=== PATIENT | male | born 1940 | race Caucasian/White ===

== ENCOUNTER 2020-09-25 16:48 | Emergency (ER) | payer OTHER, MEDICARE, SELFPAY ==
[2020-09-25] VITALS (21 sets, daily range): BP systolic 117–176; BP diastolic 61–92; PULSE 60–71; RESP 11–35; TEMP 36.5; O2SAT 91–100; BMI 29.0
--- NOTE | 2020-09-25 17:09 | DI.CT.S_ITS ---
PROCEDURE: CT HEAD/BRAIN WO CON INDICATIONS: multiple falls,ran into wall hitting head when he passed out TECHNIQUE: Noncontrast 4.5 mm thick angled axial sections acquired from the foramen magnum to the vertex, with coronal and sagittal reformats. For radiation dose reduction, the following was used: automated exposure control, adjustment of mA and/or kV according to patient size. COMPARISON: None. FINDINGS: Image quality: Inferior-most occipital bone, foramen magnum and clivus not included on the exam. CSF spaces: Basal cisterns are patent. No extra-axial fluid collections. The ventricles are symmetric in size and shape. Brain: No intracranial bleeds or masses. There is cerebral volume loss for age, with resultant ventricular and sulcal prominence. There are moderate periventricular and deep white matter chronic small vessel ischemic changes. There is intracranial internal carotid artery atherosclerosis. Old lacunar infarct noted in the posterior aspect of the left lentiform nucleus and several additional smaller lacunar infarcts noted in both basal ganglia Skull and face: Calvarium and visualized facial bones appear intact, without suspicious lesions. Bilateral intraocular lens replacements noted. Sinuses: Visualized sinuses and mastoids are clear. IMPRESSION: Atrophy and chronic ischemic change without acute hemorrhage or mass effect. Dictated by: Rene Medley M.D. on 09/25/2020 at 17:15 Approved by: Rene Medley M.D. on 09/25/2020 at 17:19
--- NOTE | 2020-09-25 17:10 | DI.CT.S_ITS ---
PROCEDURE: CT CERVICAL SPINE WO CON INDICATIONS: fall,neck pain TECHNIQUE: Noncontrast 3 mm thick sections acquired from the skull base to the T4 level. Sagittal and coronal reformats were then constructed. For radiation dose reduction, the following was used: automated exposure control, adjustment of mA and/or kV according to patient size. COMPARISON: None. FINDINGS: Image quality: Excellent. Bones: No fractures or dislocations. Visualized superior ribs are intact. Disc space narrowing and small posterior osteophytes noted at C5-6 and C6-7. There is degenerative ankylosis at C3-4 including the left facet and bilateral uncovertebral joints. Left foraminal stenosis present at C3-4, C4-5 and C5-6. Craniovertebral age bone mineralization within normal limits. Soft tissues: Prevertebral soft tissues are normal in thickness. No paravertebral hematomas. No apical pneumothoraces. Left-sided pacer wires noted. IMPRESSION: Degenerative changes without fracture or malalignment. Dictated by: Rene Medley M.D. on 09/25/2020 at 17:19 Approved by: Rene Medley M.D. on 09/25/2020 at 17:25
[2020-09-25 17:28] LABS: Add Manual Diff / Slide Review NO; Basophils Absolute Auto 100 /uL (0-100); Basophils Percent Auto 0.8 % (0-2); Eosinophils Absolute Auto 400 /uL (0-450); Eosinophils Percent Auto 4.3 % (2-4); Hematocrit 38.5 % (41-53); Hemoglobin 12.5 g/dL (13.5-17.5); Lymphocytes Absolute Auto 1300 /uL (1100-4500); Mean Corpuscular HGB Conc 32.6 % (30-36); Mean Corpuscular Hemoglobin 28.9 PG (26-34); Mean Corpuscular Volume 88.6 fL (80-100); Monocytes Absolute Auto 700 /uL (0-900); Monocytes Percent Auto 7.5 % (3-14); Neutrophils Absolute Auto 6700 /uL (1500-7000); Neutrophils Percent Auto 73.4 % (50-75); Platelet Count 207 X10^3/uL (150-400); Red Blood Cell Count 4.35 X10^6/uL (4.5-5.9); Red Cell Distribution Width 16.3 % (11.6-14.8); White Blood Cell Count 9.1 X10^3/uL (4.5-11.0)
[2020-09-25 17:34] LABS: INR 1.9 (0.9-1.3); Prothrombin Time 21.9 SECONDS (10.1-12.7)
[2020-09-25 17:37] LABS: PTT Partial Thromboplastin Tim 42 SECONDS (26.4-36.2)
--- NOTE | 2020-09-25 20:31 | ED.FALL ---
HPI - Fall General Chief Complaint: Fall Stated Complaint: multiple falls this week Time Seen by Provider: 09/25/20 18:45 Source: patient Mode of arrival: Wheelchair Related Data Allergies Allergy/AdvReac Type Severity Reaction Status Date / Time No Known Drug Allergies Allergy Verified 09/25/20 16:54 Patient History Social History Smoking Status: Unknown if ever smoked Smoking Status: Unknown if ever smoked alcohol intake frequency: holidays/special occasions only Substance Use Type: does not use Exam Initial Vital Signs Initial Vital Signs: Vital Signs Temperature 97.7 F 09/25/20 16:50 Pulse Rate 63 09/25/20 16:50 Respiratory Rate 14 09/25/20 16:50 Blood Pressure 129/66 09/25/20 16:50 Pulse Oximetry 95 09/25/20 16:50 Course Orders Ordered: ED Orders 09/25/20 17:09 CT head/brain wo con Stat EKG-12 Lead Stat 09/25/20 17:10 CT cervical spine wo con Stat 09/25/20 17:19 Complete Blood Count AUTO DIFF Stat Comprehensive Metabolic Panel Stat Partial Thromboplastin Time Stat Prothrombin Time INR Stat Type and Screen Stat 09/25/20 20:31 Urinalysis and Microscopic Stat Vital Signs Vital signs: Vital Signs - 8 hr 09/25/20 16:50 09/25/20 17:09 09/25/20 17:11 Temperature 97.7 F Pulse Rate 63 62 60 Respiratory Rate 14 12 12 Blood Pressure 129/66 157/67 H Pulse Oximetry 95 99 09/25/20 17:30 09/25/20 18:00 09/25/20 18:30 Temperature Pulse Rate 60 60 60 Respiratory Rate 17 18 16 Blood Pressure Pulse Oximetry 97 96 97 09/25/20 18:33 09/25/20 19:00 09/25/20 19:30 Temperature Pulse Rate 60 60 60 Respiratory Rate 16 13 12 Blood Pressure 135/63 117/64 Pulse Oximetry 97 97 97 09/25/20 19:31 09/25/20 20:00 Temperature Pulse Rate 61 61 Respiratory Rate 11 L 15 Blood Pressure 139/64 134/61 Pulse Oximetry 97 99 MDM - Fall Medical Records Attestation: I reviewed the patient's medical records. Lab Data Attestation: I reviewed the patient's lab results. Result diagrams: 09/25/20 17:19 09/25/20 17:19 Labs: Lab Results 09/25/20 09/25/20 09/25/20 Range/Units 17:19 17:19 17:19 WBC 9.1 (4.5-11.0) X10^3/uL RBC 4.35 L (4.5-5.9) X10^6/uL Hgb 12.5 L (13.5-17.5) g/dL Hct 38.5 L (41-53) % MCV 88.6 (80-100) fL MCH 28.9 (26-34) PG MCHC 32.6 (30-36) % RDW 16.3 H (11.6-14.8) % Plt Count 207 (150-400) X10^3/uL Neut % (Auto) 73.4 (50-75) % Lymph % (Auto) 14.0 L (25-40) % [place] % (Auto) 7.5 (3-14) % Eos % (Auto) 4.3 H (2-4) % Baso % (Auto) 0.8 (0-2) % Neut # (Auto) 6700 (8342-6208) /uL Lymph # (Auto) 1300 (8049-5892) /uL [place] # (Auto) 700 (0-900) /uL Eos # (Auto) 400 (0-450) /uL Baso # (Auto) 100 (0-100) /uL PT 21.9 H (10.1-12.7) SECONDS INR 1.9 H (0.9-1.3) APTT 42 H (26.4-36.2) SECONDS Sodium (137-145) mmol/L Potassium (3.4-5.1) mmol/L Chloride (98-107) mmol/L Carbon Dioxide (22-32) mmol/L BUN (9-20) mg/dL Creatinine (0.66-1.25) mg/dL Estimated GFR (>60) mL/min BUN/Creatinine Ratio (6-22) Glucose (80-110) mg/dL Calcium (8.4-10.2) mg/dL Total Bilirubin (0.2-1.3) mg/dL AST (17-59) IU/L ALT (<50) IU/L Alkaline Phosphatase (38-126) U/L Total Protein (6.3-8.2) g/dL Albumin (3.5-5.0) g/dL Globulin (1.7-4.1) g/dL Albumin/Globulin Ratio (1.0-2.8) Blood Type O Positive Antibody Screen Negative 09/25/20 Range/Units 17:19 WBC (4.5-11.0) X10^3/uL RBC (4.5-5.9) X10^6/uL Hgb (13.5-17.5) g/dL Hct (41-53) % MCV (80-100) fL MCH (26-34) PG MCHC (30-36) % RDW (11.6-14.8) % Plt Count (150-400) X10^3/uL Neut % (Auto) (50-75) % Lymph % (Auto) (25-40) % [place] % (Auto) (3-14) % Eos % (Auto) (2-4) % Baso % (Auto) (0-2) % Neut # (Auto) (0009-5633) /uL Lymph # (Auto) (8864-5614) /uL [place] # (Auto) (0-900) /uL Eos # (Auto) (0-450) /uL Baso # (Auto) (0-100) /uL PT (10.1-12.7) SECONDS INR (0.9-1.3) APTT (26.4-36.2) SECONDS Sodium 136 L (137-145) mmol/L Potassium 5.0 (3.4-5.1) mmol/L Chloride 101 (98-107) mmol/L Carbon Dioxide 24 (22-32) mmol/L BUN 77 H (9-20) mg/dL Creatinine 3.04 H (0.66-1.25) mg/dL Estimated GFR 20.1 L (>60) mL/min BUN/Creatinine Ratio 25.3 H (6-22) Glucose 125 H (80-110) mg/dL Calcium 9.3 (8.4-10.2) mg/dL Total Bilirubin 0.9 (0.2-1.3) mg/dL AST 31 (17-59) IU/L ALT 18 (<50) IU/L Alkaline Phosphatase 132 H (38-126) U/L Total Protein 8.0 (6.3-8.2) g/dL Albumin 4.1 (3.5-5.0) g/dL Globulin 3.9 (1.7-4.1) g/dL Albumin/Globulin Ratio 1.1 (1.0-2.8) Blood Type Antibody Screen Imaging Data Head CT: Radiologist's Impression: FINDINGS: Image quality: Inferior-most occipital bone, foramen magnum and clivus not included on the exam. CSF spaces: Basal cisterns are patent. No extra-axial fluid collections. The ventricles are symmetric in size and shape. Brain: No intracranial bleeds or masses. There is cerebral volume loss for age, with resultant ventricular and sulcal prominence. There are moderate periventricular and deep white matter chronic small vessel ischemic changes. There is intracranial internal carotid artery atherosclerosis. Old lacunar infarct noted in the posterior aspect of the left lentiform nucleus and several additional smaller lacunar infarcts noted in both basal ganglia Skull and face: Calvarium and visualized facial bones appear intact, without suspicious lesions. Bilateral intraocular lens replacements noted. Sinuses: Visualized sinuses and mastoids are clear. IMPRESSION: Atrophy and chronic ischemic change without acute hemorrhage or mass effect. Dictated by: Rene Medley M.D. on 09/25/2020 at 17:15 CT cervical spine: Radiologist's Impression: FINDINGS: Image quality: Excellent. Bones: No fractures or dislocations. Visualized superior ribs are intact. Disc space narrowing and small posterior osteophytes noted at C5-6 and C6-7. There is degenerative ankylosis at C3-4 including the left facet and bilateral uncovertebral joints. Left foraminal stenosis present at C3-4, C4-5 and C5-6. Craniovertebral age bone mineralization within normal limits. Soft tissues: Prevertebral soft tissues are normal in thickness. No paravertebral hematomas. No apical pneumothoraces. Left-sided pacer wires noted. IMPRESSION: Degenerative changes without fracture or malalignment. Dictated by: Rene Medley M.D. on 09/25/2020 at 17:19
[2020-09-25 20:58] LABS: Alanine Aminotransferase 18 IU/L (<50); Albumin 4.1 g/dL (3.5-5.0); Albumin Globulin Ratio 1.1 (1.0-2.8); Alkaline Phosphatase 132 U/L (38-126); Aspartate Aminotransferase 31 IU/L (17-59); BUN Creatinine Ratio 25.3 (6-22); Bilirubin Total 0.9 mg/dL (0.2-1.3); Blood Urea Nitrogen 77 mg/dL (9-20); Calcium 9.3 mg/dL (8.4-10.2); Carbon Dioxide 24 mmol/L (22-32); Chloride 101 mmol/L (98-107); Estimated Glomerular Filt Rate 20.1 mL/min (>60); Globulin 3.9 g/dL (1.7-4.1); Glucose 125 mg/dL (80-110); HEMOLYSIS < 15 (0-50); Sodium 136 mmol/L (137-145)
--- NOTE | 2020-09-25 21:46 | ED.GENADULT ---
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 He reportedly had 2 syncopal episodes 5 days ago and 2 4 days ago. States that he did hit his head and was having some neck pain immediately after the most recent fall. He was seen at his primary care doctor's office found to be hypotensive and transferred to the emergency room for further evaluation. He states that when he stands up he will get a pain in his neck and then feel dizzy and notes if he doesn't sit down he will fall down. He describes multiple recent hospital encounters and I have no access to those records. He does have a pacemaker in place. He reports that he had some kidney issues while he was on spironolactone that resolved once the spironolactone was discontinued. Related Data Home Medications Medication Instructions Recorded Confirmed allopurinol 09/26/20 apixaban [Eliquis] mg 09/26/20 atorvastatin 09/26/20 benzonatate mg PO 09/26/20 carvedilol 09/26/20 duloxetine mg PO 09/26/20 fluticasone propion-salmeterol INHALATION 09/26/20 [Advair Diskus] metoprolol succinate PO 09/26/20 pantoprazole PO 09/26/20 sacubitril-valsartan [Entresto] tab 09/26/20 tamsulosin mg PO 09/26/20 Allergies Allergy/AdvReac Type Severity Reaction Status Date / Time No Known Drug Allergies Allergy Verified 09/25/20 16:54 Review of Systems Review of Systems Narrative: Pertinent positive and negative findings as per HPI Remainder of review of systems is otherwise unremarkable for Constitutional: Fevers, chills, ENT: No sore throat, , ear pain CV: Chest pain, palpitations, Respiratory: Cough, wheeze, dyspnea GI: Nausea, vomiting, diarrhea, : Dysuria, hematuria, Patient History Medical History (Updated 09/26/20 @ 03:01 by Hamida Fonseca MD) Anticoagulant prescribed CAD (coronary artery disease) Hyperlipidemia Pacemaker Social History Smoking Status: Unknown if ever smoked Smoking Status: Unknown if ever smoked alcohol intake frequency: holidays/special occasions only Substance Use Type: does not use Exam Narrative Exam Narrative: General: Disheveled-appearing, in no acute distress. Well-nourished well-developed HEENT: Moist mucous membranes, normal sclera with reactive pupils, Neck: No JVD, supple Respiratory: Lungs are clear to auscultation, no wheezing no rales no rhonchi. Full and symmetrical air movement Cardiac: Regular rate and rhythm no murmurs no bruits Abdomen: Soft, nontender, good bowel tones, no flank pain Skin: Warm and dry, no rashes Neurologic: Grossly neurologically intact with no obvious asymmetries or abnormalities Extremities: No trauma, well perfused Psych: tangential but cooperative Initial Vital Signs Initial Vital Signs: Vital Signs Temperature 97.7 F 09/25/20 16:50 Pulse Rate 63 09/25/20 16:50 Respiratory Rate 14 09/25/20 16:50 Blood Pressure 129/66 09/25/20 16:50 Pulse Oximetry 95 09/25/20 16:50 Course Orders Ordered: ED Orders 09/25/20 21:32 Urinalysis and Microscopic Stat 09/26/20 00:55 COVID19 - ADMIT (AUTO RADIO MECHANIC swab/PCR) Stat Discontinued Medications Sodium Chloride (Normal Saline 0.9%) 1,000 mls @ 1,000 mls/hr IV BOLUS ONE Stop: 09/25/20 23:02 Last Infusion: 09/25/20 23:21 Dose: 0 mls/hr Documented by: [email or web address] Admin: 09/25/20 22:18 Dose: 1,000 mls/hr Documented by: [email or web address] Vital Signs Vital signs: Vital Signs - 8 hr 09/25/20 19:30 09/25/20 19:31 09/25/20 20:00 Pulse Rate 60 61 61 Respiratory Rate 12 11 L 15 Blood Pressure 139/64 134/61 Pulse Oximetry 97 97 99 09/25/20 20:30 09/25/20 21:00 09/25/20 21:30 Pulse Rate 61 60 61 Respiratory Rate 16 19 35 H Blood Pressure 146/67 H 143/68 H Pulse Oximetry 99 99 91 09/25/20 21:31 09/25/20 22:00 09/25/20 22:01 Pulse Rate 71 64 61 Respiratory Rate 29 H 19 22 Blood Pressure 132/92 H 162/84 H Pulse Oximetry 94 99 99 09/25/20 22:30 09/25/20 23:00 09/25/20 23:01 Pulse Rate 61 60 60 Respiratory Rate 29 H 20 18 Blood Pressure 153/72 H 176/77 H Pulse Oximetry 100 99 99 09/25/20 23:30 09/26/20 00:00 09/26/20 00:30 Pulse Rate 61 70 60 Respiratory Rate 20 31 H 11 L Blood Pressure 169/79 H 162/78 H Pulse Oximetry 99 89 L 99 09/26/20 01:00 09/26/20 01:30 09/26/20 02:00 Pulse Rate 60 60 60 Respiratory Rate 12 12 20 Blood Pressure 181/81 H 176/81 H 161/79 H Pulse Oximetry 99 99 97 09/26/20 02:30 09/26/20 02:31 Pulse Rate 60 60 Respiratory Rate 21 21 Blood Pressure 165/77 H Pulse Oximetry 97 98 Medical Decision Making Medical Records Medical records reviewed: Yes I reviewed the patient's medical records. Lab Data Lab results reviewed: Yes I reviewed the patient's lab results. Result diagrams: 09/25/20 17:19 09/25/20 17:19 Labs: Lab Results 09/25/20 09/25/20 09/25/20 Range/Units 17:19 17:19 17:19 WBC 9.1 (4.5-11.0) X10^3/uL RBC 4.35 L (4.5-5.9) X10^6/uL Hgb 12.5 L (13.5-17.5) g/dL Hct 38.5 L (41-53) % MCV 88.6 (80-100) fL MCH 28.9 (26-34) PG MCHC 32.6 (30-36) % RDW 16.3 H (11.6-14.8) % Plt Count 207 (150-400) X10^3/uL Neut % (Auto) 73.4 (50-75) % Lymph % (Auto) 14.0 L (25-40) % [place] % (Auto) 7.5 (3-14) % Eos % (Auto) 4.3 H (2-4) % Baso % (Auto) 0.8 (0-2) % Neut # (Auto) 6700 (4240-1134) /uL Lymph # (Auto) 1300 (4332-7918) /uL [place] # (Auto) 700 (0-900) /uL Eos # (Auto) 400 (0-450) /uL Baso # (Auto) 100 (0-100) /uL PT 21.9 H (10.1-12.7) SECONDS INR 1.9 H (0.9-1.3) APTT 42 H (26.4-36.2) SECONDS Sodium (137-145) mmol/L Potassium (3.4-5.1) mmol/L Chloride (98-107) mmol/L Carbon Dioxide (22-32) mmol/L BUN (9-20) mg/dL Creatinine (0.66-1.25) mg/dL Estimated GFR (>60) mL/min BUN/Creatinine Ratio (6-22) Glucose (80-110) mg/dL Calcium (8.4-10.2) mg/dL Total Bilirubin (0.2-1.3) mg/dL AST (17-59) IU/L ALT (<50) IU/L Alkaline Phosphatase (38-126) U/L Total Protein (6.3-8.2) g/dL Albumin (3.5-5.0) g/dL Globulin (1.7-4.1) g/dL Albumin/Globulin Ratio (1.0-2.8) Urine Color Urine Appearance Urine pH (4.5-8.0) Ur Specific [place] (1.000-1.035) Urine Protein (Negative) Urine Glucose (UA) (Negative) g/dL Urine Ketones (NEGATIVE) Urine Occult Blood (Negative) Urine Nitrate (Negative) Urine Bilirubin (NEGATIVE) Urine Urobilinogen (0.2) E.U./dL Ur Leukocyte Esterase (NEGATIVE) Urine RBC (0-5/HPF) Urine WBC (0-5/HPF) Ur Squamous Epith Cells (0-5/HPF) Urine Bacteria (None) Hyaline Casts (None) Ur Culture Indicated? SARS-CoV-2 (PCR) (Negative) Blood Type O Positive Antibody Screen Negative 09/25/20 09/25/20 09/26/20 Range/Units 17:19 21:32 00:55 WBC (4.5-11.0) X10^3/uL RBC (4.5-5.9) X10^6/uL Hgb (13.5-17.5) g/dL Hct (41-53) % MCV (80-100) fL MCH (26-34) PG MCHC (30-36) % RDW (11.6-14.8) % Plt Count (150-400) X10^3/uL Neut % (Auto) (50-75) % Lymph % (Auto) (25-40) % [place] % (Auto) (3-14) % Eos % (Auto) (2-4) % Baso % (Auto) (0-2) % Neut # (Auto) (2279-0102) /uL Lymph # (Auto) (1070-3541) /uL [place] # (Auto) (0-900) /uL Eos # (Auto) (0-450) /uL Baso # (Auto) (0-100) /uL PT (10.1-12.7) SECONDS INR (0.9-1.3) APTT (26.4-36.2) SECONDS Sodium 136 L (137-145) mmol/L Potassium 5.0 (3.4-5.1) mmol/L Chloride 101 (98-107) mmol/L Carbon Dioxide 24 (22-32) mmol/L BUN 77 H (9-20) mg/dL Creatinine 3.04 H (0.66-1.25) mg/dL Estimated GFR 20.1 L (>60) mL/min BUN/Creatinine Ratio 25.3 H (6-22) Glucose 125 H (80-110) mg/dL Calcium 9.3 (8.4-10.2) mg/dL Total Bilirubin 0.9 (0.2-1.3) mg/dL AST 31 (17-59) IU/L ALT 18 (<50) IU/L Alkaline Phosphatase 132 H (38-126) U/L Total Protein 8.0 (6.3-8.2) g/dL Albumin 4.1 (3.5-5.0) g/dL Globulin 3.9 (1.7-4.1) g/dL Albumin/Globulin Ratio 1.1 (1.0-2.8) Urine Color Yellow Urine Appearance Clear Urine pH 5.5 (4.5-8.0) Ur Specific [place] 1.010 (1.000-1.035) Urine Protein Trace H (Negative) Urine Glucose (UA) Negative (Negative) g/dL Urine Ketones Negative (NEGATIVE) Urine Occult Blood Negative (Negative) Urine Nitrate Negative (Negative) Urine Bilirubin Negative (NEGATIVE) Urine Urobilinogen 0.2 (0.2) E.U./dL Ur Leukocyte Esterase Negative (NEGATIVE) Urine RBC None seen (0-5/HPF) Urine WBC None seen (0-5/HPF) Ur Squamous Epith Cells 0-1 /hpf (0-5/HPF) Urine Bacteria None seen (None) Hyaline Casts 0-1/lpf (None) Ur Culture Indicated? Cult not indicated SARS-CoV-2 (PCR) Negative (Negative) Blood Type Antibody Screen Urine Dip Bedside Urine Glucose Negative Bedside Urine Bilirubin - Negative Bedside Urine Ketone - Negative Urine Specific [place] 1.015 Bedside Urine Occult Blood - Negative Bedside Urine pH 6.0 Bedside Urine Protein +/- 15 Bedside Urine Urobilinogen - Negative Bedside Urine Nitrite - Negative Bedside Urine Leukocytes - Negative Esterase Point of care testing: Urine Dip Bedside Urine Glucose Negative Bedside Urine Bilirubin - Negative Bedside Urine Ketone - Negative Urine Specific [place] 1.015 Bedside Urine Occult Blood - Negative Bedside Urine pH 6.0 Bedside Urine Protein +/- 15 Bedside Urine Urobilinogen - Negative Bedside Urine Nitrite - Negative Bedside Urine Leukocytes - Negative Esterase MDM Narrative Medical decision making narrative: 79-year-old gentleman with increasing near syncopal episodes weakness and falls over the last number of days. No evidence of infection, acute coronary syndrome abnormalities on head CT or other overt explanations for his symptoms. His creatinine is elevated at 3 and I have not been able to establish what his baseline actually is. He does have a history of renal insufficiency while he was on spironolactone in the past but he reports that once the spironolactone was discontinued his renal function stabilized and he has not needed to see a associate professor plant pathology for the last 1-2 years. Beds are not available at [facility]. [facility] does have beds and he does seem any of the providers there. Care is reviewed with Dr. Osborn, associate professor plant pathology, who agrees to consult on this gentleman who would be admitted to the hospitalist service. Med list is now finally available for review. It does look like he has a bit of polypharmacy that may be affecting him adversely and causing his overall symptoms. Care is reviewed with Dr. Petersen, hospitalist at [facility]. Patient is accepted and will be transferred over. Plans and findings are reviewed with patient and his son questions are answered. Discharge Plan Departure Patient Disposition: [facility] Clinical Impression: Acute renal insufficiency Syncope Qualifiers: Syncope type: unspecified Qualified Code(s): R55 - Syncope and collapse Prescriptions: No Action fluticasone propion-salmeterol [Advair Diskus] 250-50 mcg/dose blister with device INHALATION RF: 0 allopurinol 300 mg tablet RF: 0 atorvastatin 40 mg tablet RF: 0 benzonatate 100 mg capsule PO RF: 0 carvedilol 25 mg tablet RF: 0 duloxetine 30 mg capsule,delayed release(DR/EC) PO RF: 0 Eliquis 5 mg tablet RF: 0 Entresto 97-103 mg tablet RF: 0 metoprolol succinate 50 mg tablet extended release 24 hr PO RF: 0 pantoprazole 40 mg tablet,delayed release (DR/EC) PO RF: 0 tamsulosin 0.4 mg capsule PO RF: 0 Referrals: Holden Betancur MD [Primary Care Provider] -
[2020-09-25] MEDS: SODIUM CHLORIDE 0.9% 1,000 ML 1000 ML IV (22:18)
[2020-09-25 22:39] LABS: Bacteria Urine None Seen; RBC Urine None Seen (0-5/HPF); WBC Urine None Seen (0-5/HPF)
[2020-09-25 22:41] LABS: Appearance Urine UA CLEAR; Bilirubin Urine UA NEGATIVE (NEGATIVE); Color Urine UA YELLOW; Glucose Urine UA NEGATIVE (Negative); Ketones Urine UA NEGATIVE (NEGATIVE); Leukocyte Esterase Urine UA NEGATIVE (NEGATIVE); Nitrite Urine UA NEGATIVE (Negative); Occult Blood Urine UA NEGATIVE (Negative); Protein Urine UA TRACE (Negative); Urobilinogen Urine UA 0.2 E.U./dL (0.2); pH Urine UA 5.5 (4.5-8.0)
[2020-09-25 22:46] LABS: Squamous Epithelial Cell Urine 0-1 /HPF (0-5/HPF)
[2020-09-25 22:47] LABS: Culture Indicated Urine Cult Not Indicated; Hyaline Casts Urine 0-1/LPF
[2020-09-26] VITALS (13 sets, daily range): BP systolic 161–181; BP diastolic 77–108; PULSE 60–70; RESP 11–31; O2SAT 89–99
[2020-09-26 02:52] LABS: COVID19 - ADMIT (NP swab/PCR) Negative (Negative)
== END 2020-09-26 04:30 | disposition short-term general hospital (02) ==
PROVIDERS: Emergency Medicine; Emergency Provider Emergency Medicine; Family Provider Family Medicine; PCP Family Medicine
DX: R55 Syncope and collapse (principal); N28.9 Disorder of kidney and ureter, unspecified; M54.2 Cervicalgia; S09.90XA Unspecified injury of head, initial encounter; R29.6 Repeated falls; R42 Dizziness and giddiness; Z79.01 Long term (current) use of anticoagulants; Z20.822 Contact with and (suspected) exposure to COVID-19; Z95.0 Presence of cardiac pacemaker
CPT/HCPCS: 36415; 70450; 72125; 80053; 81001; 81003; 85025; 85610; 85730; 86850; 86900; 86901; 87635; 93005; 93010; 96360; 99285; C9803